=== PATIENT | male | born 1995 | race Caucasian/White ===

== ENCOUNTER 2016-11-26 14:27 | Emergency (ER) | payer OTHER ==
[~2016-11-26] VITALS: Ht 190.5 cm; Wt 76.6 kg
[2016-11-26 14:28] VITALS: BP 143/80
== END 2016-11-26 15:06 | disposition home or self-care (01) ==
LOC: ED 15:00
DX: R59.0 Localized enlarged lymph nodes (principal)
CPT/HCPCS: 99281

== ENCOUNTER 2016-12-25 03:17 | Emergency (ER) | payer OTHER ==
[~2016-12-25] VITALS: Ht 190.5 cm; Wt 75.0 kg
[2016-12-25 06:08] VITALS: BP 108/66
== END 2016-12-25 06:26 | disposition home or self-care (01) ==
LOC: ED 03:33
DX: F10.120 Alcohol abuse with intoxication, uncomplicated (principal)
CPT/HCPCS: 36415; 80307; 99283

== ENCOUNTER 2017-06-25 15:11 | Emergency (ER) | payer OTHER ==
[~2017-06-25] VITALS: Ht 190.5 cm; Wt 77.9 kg
[2017-06-25 15:12] VITALS: BP 144/83
== END 2017-06-25 15:47 | disposition home or self-care (01) ==
LOC: ED 15:40
DX: S29.011A Strain of muscle and tendon of front wall of thorax, initial encounter (principal); X58.XXXA Exposure to other specified factors, initial encounter; Y93.89 Activity, other specified; Y92.89 Other specified places as the place of occurrence of the external cause; Y99.8 Other external cause status
CPT/HCPCS: 93005; 99283